=== PATIENT | male | born 1990 | race African-American/Black ===

== ENCOUNTER 2025-04-19 16:06 | Emergency (ER) | payer MEDICAID ==
[~2025-04-19] VITALS: Ht 170.2 cm; Wt 68.0 kg
[~2025-04-19 16:06] MED LIST: ANTIBIOTIC
[2025-04-19 16:07] VITALS: TEMP 98.1; O2SAT 97
[2025-04-19 20:03] LABS: HEMATOCRIT. 43.2 % (42.0-52.0); HEMOGLOBIN. 13.9 g/dL (14.0-18.0); MEAN PLATELET VOLUME 7.6 fl (7.4-10.4); PLATELET 267 x1000/uL (130-400); RED BLOOD CELL COUNT 4.64 mill/uL (4.7-6.1); RED CELL DISTRIBUTION WIDTH 13.3 % (11.6-14.6)
[2025-04-19 20:21] LABS: CREATININE 0.8 mg/dL (0.6-1.3); UREA NITROGEN BLOOD 13 mg/dL (9-23)
[2025-04-19 20:22] LABS: ETHANOL BLOOD < 10 mg/dL (<10)
[2025-04-19 20:23] LABS: ASPARTATE AMINOTRANSFERASE 42 IU/L (<34)
[2025-04-19 20:24] LABS: BILIRUBIN TOTAL 0.6 mg/dL (0.1-1.0); PROTEIN TOTAL 7.2 g/dL (6.0-8.3)
[2025-04-19 20:31] LABS: BAND% 2.0 % (1.0-6.0); LYMPHOCYTES % MANUAL 5.0 % (20.0-50.0); MONOCYTES % MANUAL 4.0 % (2.0-8.0); NEUTROPHILS % MANUAL 89.0 % (45.0-75.0); PLATELET ESTIMATE NORMAL
[2025-04-19 22:37] VITALS: BP 96/60; PULSE 62; RESP 14; O2SAT 95
== END 2025-04-19 22:47 | disposition home or self-care (01) ==
LOC: ER 16:06
DX: F15.129 Other stimulant abuse with intoxication, unspecified (principal); D72.829 Elevated white blood cell count, unspecified; Z79.899 Other long term (current) drug therapy
CPT/HCPCS: 36415; 80053; 80320; 85025; 93005; 99284; G0480